=== PATIENT | male | born 1950 | race Caucasian/White ===

== ENCOUNTER 2024-03-19 06:18 | Day surgery (SDC) | payer OTHER, SELFPAY ==
[2024-03-07 10:59] LABS: Hematocrit 42.9 % (39.0-52.0); Mean Corpuscular Hgb 30.2 pg (27.0-31.0); Mean Corpuscular Volume 86.5 fL (80.0-94.0); Mean Platelet Volume 10.1 fL (7.4-10.4); Platelet Count 288 10^3/uL (130-400); Red Blood Cell Count 4.96 10^6/uL (4.70-6.10); Red Cell Dist. Width 12.6 % (11.5-14.5); White Blood Cell Count 9.9 10^3/uL (4.8-10.8)
[2024-03-07 11:23] LABS: Blood Urea Nitrogen 17 mg/dl (9-20); Calcium 10.6 mg/dl (8.4-10.2); Carbon Dioxide 30 mmol/L (22-30); Chloride 106 mmol/L (98-107); Glucose 124 mg/dl (70-99); Potassium 5.5 mmol/L (3.5-5.1); Sodium 143 mmol/L (135-145); eGFR > 60.00
--- NOTE | 2024-03-13 14:59 | SUR.OPER ---
Patients 03/07 Potassium 5.5- reviewed by Dr. Calabrese- no additional interventions required. Tete @ Dr. Rudd office notified of same.
[2024-03-19] VITALS (10 sets, daily range): BP systolic 151–174; BP diastolic 59–98; BMI 30.9
--- NOTE | 2024-03-19 10:24 | HP.FOC2 ---
Focused History & Physical
Chief Complaint
HPI:
Chief Complaint: Right inguinal hernia
HPI / Indication for Planned Procedure: Patient is a 77-year-old male recently seen in outpatient surgical evaluation secondary to a few month history of discomfort and swelling in the right inguinal region. Physical examination confirmed the
presence of a reducible, nontender right inguinal hernia. He presents today for scheduled operative correction.
Relevant Past Medical History: Other (Mitral regurgitation, pulmonary valve regurgitation, decreased hearing on the left, hyperlipidemia, tricuspid regurgitation, abnormal lipids)
Relevant Social History: Negative
Relevant Family History: Negative
Relevant Past Surgical History: Positive for (Open appendectomy as a child, laparoscopic cholecystectomy 2006)
Review of Systems
Review of Pertinent Systems: All Systems Negative
Medication
See Medication form for detailed medications: Yes
Medication List (including Herbals & OTC):
cyanocobalamin (vitamin B-12) 1,000 mcg tablet,extended release (Vitamin B-12 ER) 1,000 mcg PO DAILY 03/15/24
[id number] 300 mcg-K 60 mcg-lycop 600 mcg-lutein 300 mcg tablet (Centrum Silver Men) 1 tab PO DAILY 03/15/24
Medications Reviewed: Yes
Allergies and Reactions
Patient has Allergies: No
Noted Allergies and Reactions:
Allergy/AdvReac Type Severity Reaction Status Date / Time
NKA - No Known Allergies Allergy None Uncoded 03/15/24 10:17
Pertinent Physical Exam
All Other Systems: Negative
Head/Neck: Normal
Lungs: Normal
Heart: Normal
Abdomen: Other (Reducible right inguinal hernia.) and Other (Laparoscopic cholecystectomy surgical scars, right lower quadrant open appendectomy surgical scar)
Extremities: Normal
Neurological: Normal
Diagnosis / Assessment
Assessment: 77-year-old male presenting for scheduled operative correction symptomatic right inguinal hernia
Plan / Procedure
Robotic assisted laparoscopic repair right inguinal hernia with mesh
Anesthesia/Sedation to be done by Anesthesia Provider: Yes
[2024-03-19] MEDS: TYLENOL 1000 MG PO (11:24)
--- NOTE | 2024-03-19 12:49 | W.SUR.PREOP ---
Pre-Operative Surgical Note
-
I have examined this patient prior to the performance of the scheduled procedure.
The patient's condition is unchanged from the time of the current History and
Physical and the patient is able to undergo the scheduled procedure.
--- NOTE | 2024-03-19 14:55 | W.IMMPOSTOP ---
Addendum entered and electronically signed by Clifford Moreno MD 03/19/24 15:08:
#[id number]
Original Note:
Surgical Immed Post Op Note
-
Primary Surgeon: Josh
Assisting Surgeon: Kelvin
Pre-op Diagnosis: RIH
Post-op Diagnosis: RIH - direct
Procedure Performed: RAL CAMILO RIH repair with mesh; 3dmax lg regular weight
Anesthesia Type: GETA +0.25% Marcaine with epinephrine
Specimen / Cultures: None
Estimated Blood Loss: 6 mL
Complications: None immediate
Operative Findings: Right direct inguinal hernia. Femoral space normal. Indirect space normal, no lipoma of inguinal canal/cord structures. Dense adhesions right lower quadrant at about the level of the right ASIS from remote history of open
appendectomy as a child. Did not take down adhesions as cecum and terminal ileum were intermittently adherent. 3D max large regular weight mesh repair, lateral aspect of mesh trimmed to accommodate the pocket size which was limited secondary to
adhesions as described above.
== END 2024-03-19 16:55 | disposition home or self-care (01) ==
LOC: SDS 06:18
PROVIDERS: ATTENDING PHYSICIAN Surgery; FAMILY PHYSICIAN Family Medicine; OTHER PHYSICIAN Internal Medicine Cardiovascular Disease
DX: K40.90 Unilateral inguinal hernia, without obstruction or gangrene, not specified as recurrent (principal)
CPT/HCPCS: 49650; 36415; 80048; 85027; C1781